=== PATIENT | male | born 1990 | race Caucasian/White ===

== ENCOUNTER 2020-11-30 07:14 | Emergency (ER) | payer MEDICAID ==
[~2020-11-30] VITALS: Ht 175.3 cm; Wt 113.4 kg
[2020-11-30 07:18] VITALS: BP_SYST 145
[2020-11-30 07:22] VITALS: BP_SYST 145
== END 2020-11-30 07:35 ==
LOC: SED 07:14
DX: Z02.89 Encounter for other administrative examinations (principal)
CPT/HCPCS: 99283